=== PATIENT | female | born 2000 | race Caucasian/White ===

== ENCOUNTER 2023-10-11 22:28 | Emergency (ER) | payer BC ==
[2023-10-11] MEDS ORDERED: traMADol 50 MG Tab PO ONE (22:29)
[2023-10-11] MEDS: Sodium Chloride 0.9% 10 ML Syringe FLUSH PRN (22:38)
[2023-10-11] MEDS: Sodium Chloride 0.9% 1,000 ML IV SCH (22:46)
[2023-10-11 22:47] LABS: HEMATOCRIT 50.2 % (34.2-48.2); HEMOGLOBIN 17.3 g/dL (11.4-15.5); MEAN CORPUSCULAR HEMOGLOBIN 30.6 pg (23.9-33.9); MEAN CORPUSCULAR HGB CONC 34.4 g/dL (31.9-34.8); MEAN PLATELET VOLUME 8.1 fL (7.1-12.4); PLATELET COUNT,PLT 465 x10(3)uL (151-488); RED BLOOD CELL COUNT 5.64 x10(6)uL (3.60-5.20); WHITE BLOOD CELL COUNT,WBC 15.2 x10-3/uL (3.0-10.3)
[2023-10-11] MEDS: Ketorolac 30 MG/ML SDV IVPUSH ONE (22:49)
[2023-10-11] MEDS: Ondansetron 4 MG/2 ML SDV IVPUSH ONE (22:49)
[2023-10-11] MEDS: Morphine 4 MG/ML VIAL IVPUSH ONE (22:50)
[2023-10-11 22:51] LABS: BLOOD UREA NITROGEN,BUN 10 mg/dL (7-18); CALCIUM 9.4 mg/dL (8.6-10.2); CARBON DIOXIDE,CO2 20 mmol/L (21-32); CHLORIDE,CL 103 mmol/L (100-110); ESTIMATED GFR 82 mL/min (>60); GLUCOSE RANDOM 111 mg/dL (80-116); SODIUM,NA 139 mmol/L (135-145)
[2023-10-11 22:57] LABS: A/G RATIO 1.2; ALANINE AMINOTRANSFERASE,ALT 21 U/L (12-36); ALBUMIN 3.7 g/dL (3.5-5.2); ALKALINE PHOSPHATASE 75 IU/L (56-112); AMYLASE 50 U/L (25-115); ASPARTATE AMNIOTRANSFERASE,AST 13 IU/L (5-25); BILIRUBIN TOTAL 0.5 mg/dL (0.1-1.3); PROTEIN TOTAL,TP 6.7 g/dL (6.0-8.0)
[2023-10-11 23:05] LABS: BASOPHILS PERCENT MAN 2 % (0-2); EOSINOPHILS PERCENT MAN 1 % (0-5); LYMPHOCYTES PERCENT MAN 37 % (13-37); MONOCYTES PERCENT MAN 6 % (4-12); SEG NEUTROPHILS PERCENT MAN 54 % (46-82)
[2023-10-11 23:08] LABS: BILIRUBIN,URINE NEGATIVE (NEGATIVE); GLUCOSE,URINE NORMAL (NORMAL); KETONES,URINE 15 mg/dL (NEGATIVE); LEUKOCYTE ESTERASE,URINE NEGATIVE (NEGATIVE); NITRITE,URINE NEGATIVE (NEGATIVE); OCCULT BLOOD,URINE NEGATIVE (NEGATIVE); PROTEIN,URINE NEGATIVE (NEGATIVE); UROBILINOGEN,URINE NORMAL (NEGATIVE)
[2023-10-11 23:16] LABS: APPEARANCE,URINE CLOUDY (CLEAR); BACTERIA,URINE MODERATE (NS); COLOR,URINE YELLOW (YELLOW); MUCUS,URINE MODERATE (NS); RBC,URINE 0-5 (0-5); SQUAMOUS EPITHELIAL CELLS,UR MODERATE (NS,R,O); WBC,URINE 0-5 (0-5)
[2023-10-12 00:18] LABS: INFLUENZA A NAA NEGATIVE (NEGATIVE); INFLUENZA B NAA NEGATIVE (NEGATIVE)
[2023-10-12 00:19] LABS: CORONAVIRUS COVID-19 NAA NEGATIVE (NEGATIVE)
[2023-10-12] MEDS: Iopamidol 755 Mg/ML 100 ML Bottle IV SCH (00:27)
== END 2023-10-12 02:08 | disposition home or self-care (01) ==
LOC: EDBD 22:28 → FB.ED 22:28
DX: K59.00 Constipation, unspecified (principal); Z88.8 Allergy status to other drugs, medicaments and biological substances; Z79.899 Other long term (current) drug therapy
CPT/HCPCS: 0240U; 36415; 74177; 80053; 81001; 81025; 82150; 83690; 85025; 96361; 96374; 96375; 99284; A9270; J1885; J2270; J2405; J3490; J7030; Q9967